=== PATIENT | female | born 1980 | race Caucasian/White ===

== ENCOUNTER 2025-01-23 06:07 | Emergency (ER) | payer OTHER, SELFPAY ==
[2025-01-23 06:10] VITALS: BP 100/75; PULSE 67; TEMP 36.6; O2SAT 99; BMI 38.6
--- NOTE | 2025-01-23 06:25 | ED_ITS ---
HPI HPI - Head Injury General Chief complaint: Head Injury Stated complaint: FALL Time Seen by Provider: 01/23/25 06:23 Source: patient Mode of arrival: ambulance Limitations: no limitations History of Present Illness HPI Narrative: The 44-year-old female presents for evaluation of a head injury and neck pain. The patient works at [employer]. She states she was trying to step up onto a p latform to get some screws but was unable to get her leg fully up onto the platform when she lost her balance and fell forward striking her head on a motor that had a piece of metal sticking out of it. She struck her forehead on the metal and then her neck snapped back and she felt a crunching sensation in her neck. She has a superficial abrasion at the mid forehead and a deeper abrasion at the hairline. She denies any weakness numbness or tingling of her extremities. She was brought to a seated position by her coworkers and EMS was called and a cervical collar was placed on her neck. She states her last tetanus shot was approximately a year ago when she had weight loss surgery. She did not lose consciousness. She has no chest pain or shortness of breath. Related Data Home Medications ?Medication ?Instructions ?Recorded ?Confirmed ergocalciferol (vitamin D2) 1,250 1,250 mcg PO DAILY 0 01/23/25 01/23/25 mcg (50,000 unit) capsule (Vitamin D2) multivitamin (Daily Multi-Vitamin 1 tab PO DAILY 01/2301/23/25 tablet) Allergies Allergy/AdvReac Type Severity Reaction Status Date / Time No Known Drug Allergies Allergy Verified 01/23/25 06:08 Opioid HPI Opioid Management Most Recent Pain and Opioid Data: Last Pain Scale 6 Today, 06:18 Review of Systems ROS Status of ROS 10 or more systems reviewed and unremark able except as noted in history and below PFSH PFSH Social History Little interest or pleasure in doing things: not at all Feeling down, depressed, or hopeless: not at all Exam Narrative Exam Narrative: Vital signs and Nursing Notes reviewed: Patient is afebrile with a normal pulse, normal blood pressure, she is not hypoxic with pulse ox of 99% on room air General: Awake, alert, oriented, GCS 15, mildly uncomfortable appearing female, she is in a cervical collar HEENT: Normocephalic, there is swelling to the forehead area with the superficial abrasion at the mid forehead and approximately 1.5 cm deeper laceration at the hairline. No nasal bone tenderness. No dental injury. No raccoon or Romo sign noted Neck: In cervical collar Chest: Lungs are clear to auscultation with good air entry, there is no wheezing rhonchi or rales appreciated no accessory muscle use, patient is speaking in complete sentences-no chest wall tenderness to palpation CVS: Regular rate and rhythm S1-S2, no murmurs rubs or gallops, pulses are brisk and equal bilaterally Extremities: Moving all extremities, no lower extremity tenderness or swelling noted, negative Homans' sign, pulses are brisk and equal bilaterally Skin: Normal in appearance without rash,pallor, petechiae or purpura Neuro: No focal deficits, speech is clear, upper and lower extremity strength and sensation is intact, no focal deficits noted Constitutional Vital Signs, click to edit/add: Last Vital Signs Temp 98 F 01/23/25 06:10 Pulse 61 01/23/25 06:52 Resp 19 01/23/25 06:52 BP 118/74 01/23/25 06:52 Pulse Ox 100 01/23/25 06:52 O2 Del Method Room Air 01/23/25 06:10 Course Vital Signs Vital signs: Vital Signs Temperature 98 F 01/23/25 06:10 Pulse Rate 67 01/23/25 06:10 Respiratory Rate 18 01/23/25 06:10 Blood Pressure 100/75 01/23/25 06:10 Pulse Oximetry 99 01/23/25 06:10 Oxygen Delivery Method Room Air 01/23/25 06:10 Temperature 98 F 01/23/25 06:10 Pulse Rate 61 01/23/25 06:52 Respiratory Rate 19 01/23/25 06:52 Blood Pressure 118/74 01/23/25 06:52 Pulse Oximetry 100 01/23/25 06:52 Oxygen Delivery Method Room Air 01/23/25 06:10 Discharge Plan Discharge Patient Disposition: Still a Patient
[2025-01-23 06:52] VITALS: BP 118/74; PULSE 61; O2SAT 100
[2025-01-23 07:09] VITALS: BP 111/72; PULSE 63; O2SAT 100
[2025-01-23] MEDS: ACETAMINOPHEN 325 MG TABLET 650 MG PO (07:12)
[2025-01-23] MEDS: LIDOCAINE HCL 1% PF 20 MG/2 ML VIAL 5 ML INJ (08:08)
--- NOTE | 2025-01-23 09:15 | ED.GENADUL1 ---
HPI HPI - General Adult General Chief complaint: Head Injury Stated complaint: FALL Time Seen by Provider: 01/23/25 06:23 Source: patient Mode of arrival: ambulance Limitations: no limitations History of Present Illness HPI narrative: Patient is a All systems are negative except as noted/marked. All systems reviewed and otherwise negative. Nurses note and vital signs reviewed and patient is not hypoxic. General: The patient appears well and in no apparent distress. Patient is resting comfortably on cart. Patient is not toxic, lethargic, or listless Skin: Warm, dry, no pallor noted. There is no rash noted. No petechiae, purpura. Head: Normocephalic, atraumatic Eye: Normal conjunctiva, no drainage, EOMI. PERRL Ears, Nose, Mouth, and Throat: oral mucosa is moist. Nares patent. Mouth without vesicles. Cardiovascular: Regular Rate and Rhythm, no murmur, gallop, rub Respiratory: Patient is in no distress, no accessory muscle use, lungs are clear to auscultation, no wheezing, rales or rhonchi Back: non-tender, no CVA tenderness bilaterally to percussion. No CT LS midline pain GI: no tenderness to palpation, no masses appreciated. No rebound, guarding, or rigidity noted. No distention Musculoskeletal: Patient has full range of motion of all of the extremities, no motor, sensory, or focal neurological deficits Neurological: A&O x4, normal speech Psychiatric: Cooperative Related Data Home Medications ?Medication ?Instructions ?Recorded ?Confirmed ergocalciferol (vitamin D2) 1,250 1,250 mcg PO DAILY 01/23/25 01/23/25 mcg (50,000 unit) capsule (Vitamin D2) multivitamin (Daily Multi-Vitamin 1 tab PO DAILY 01/23/25 01/23/25 tablet) Allergies Allergy/AdvReac Type Severity Reaction Status Date / Time No Known Drug Allergies Allergy Verified 01/23/25 06:08 Opioid HPI Opioid Management Most Recent Opioid Data: Last Pain Scale 6 Today, 06:18 PFSH PFSH Social History Little interest or pleasure in doing things: not at all Feeling down, depressed, or hopeless: not at all Exam Constitutional Vital Signs, click to edit/add: Last Vital Signs Temp 98 F 01/23/25 06:10 Pulse 63 01/23/25 07:09 Resp 20 01/23/25 07:09 BP 111/72 01/23/25 07:09 Pulse Ox 100 01/23/25 07:09 O2 Del Method Room Air 01/23/25 07:09 Course Vital Signs Vital signs: Vital Signs Temperature 98 F 01/23/25 06:10 Pulse Rate 67 01/23/25 06:10 Respiratory Rate 18 01/23/25 06:10 Blood Pressure 100/75 01/23/25 06:10 Pulse Oximetry 99 01/23/25 06:10 Oxygen Delivery Method Room Air 01/23/25 06:10 Temperature 98 F 01/23/25 06:10 Pulse Rate 63 01/23/25 07:09 Respiratory Rate 20 01/23/25 07:09 Blood Pressure 111/72 01/23/25 07:09 Pulse Oximetry 100 01/23/25 07:09 Oxygen Delivery Method Room Air 01/23/25 07:09 Discharge Plan Discharge Chief Complaint: Head Injury Clinical Impression: Closed head injury, Forehead laceration, Abrasion of face, Fall Patient Disposition: Home, Self-Care Time of Disposition Decision: 09:08 Condition: Fair Prescriptions / Home Meds: No Action ergocalciferol (vitamin D2) [Vitamin D2] 1,250 mcg (50,000 unit) capsule 1,250 mcg PO DAILY multivitamin [Daily Multi-Vitamin] Tablet 1 tab PO DAILY Print Language: [place] Instructions: Laceration (ED), Head Injury (ED), Abrasion (ED), Head Laceration (ED) Additional Instructions: Sutures to be removed in 7 to 10 days. You have 3 absorbable sutures underneath the skin, you have 5 superficial sutures placed as well. He had a tetanus update today. Alternate Tylenol and either Motrin, Advil, or ibuprofen every 4 hours to help with pain. Maximum dose of Tylenol is 3000 mg a day. Maximum dose of either Motrin, Advil, or ibuprofen is 2400 mg a day. Use topical antibiotic ointment Neosporin, bacitracin, or triple antibiotic 3-4 times a day for the next 2 weeks to your laceration and superficial forehead abrasion to help prevent infection and help with healing. Use sunblock 30 every time you are on the sun for more than 5 minutes, regardless of the temperature, for the next 6 months to help minimize scarring. Use ice 20 minutes on, 20 minutes off to help with pain and swelling. Up with your occupational health clinic at [facility]. Referrals: Physician,Non-Staff, [Physician] - 1 week
[2025-01-23] MEDS: BACITRACIN 0.9 GM PACKET 1 PACKET TOPICAL (09:31)
[2025-01-23] MEDS: ADACEL DIPH,PERTUSS(ACELL),TET VAC/PF 0.5 ML ADULT SYRINGE IM (09:32)
== END 2025-01-23 09:51 | disposition home or self-care (01) ==
PROVIDERS: Emergency Provider Emergency Medicine; PCP Nurse Practitioner
DX: S01.01XA Laceration without foreign body of scalp, initial encounter (principal); S00.81XA Abrasion of other part of head, initial encounter; S09.8XXA Other specified injuries of head, initial encounter; W19.XXXA Unspecified fall, initial encounter; Z23 Encounter for immunization; M54.2 Cervicalgia; W22.8XXA Striking against or struck by other objects, initial encounter; Y92.63 Factory as the place of occurrence of the external cause
CPT/HCPCS: 12001; 70450; 72125; 90471; 90715; 99284